=== PATIENT | female | born 2000 | race Caucasian/White ===

== ENCOUNTER 2020-04-20 15:13 | Emergency (ER) | payer OTHER, SELFPAY ==
[2020-04-20 15:26] VITALS: BP 126/72; PULSE 119; RESP 24; TEMP 37.2; O2SAT 99
--- NOTE | 2020-04-20 15:49 | ED.FEMALEGU ---
HPI - Female Genitourinary General Chief complaint: Urogenital-Female Stated complaint: fever/chills/vomitting/blood in urine/back pain Time Seen by Provider: 04/20/20 15:49 Source: patient Mode of arrival: ambulatory Limitations: no limitations History of Present Illness HPI Narrative: Nannette Verduzco is a 19 yo female with PMH if UTI here again with recurrent uti. Dysuria, urgency, burning, hematuria, x 1 week- blood started 2 days ago Related Data Home Medications Medication Instructions Recorded Confirmed No Home Medications 04/20/20 04/20/20 Allergies Allergy/AdvReac Type Severity Reaction Status Date / Time No Known Allergies Allergy Verified 04/20/20 15:36 Review of Systems Review of Systems: Narrative: CONSTITUTIONAL: Denies fever, chills, sweats. EYES: Denies visual changes, redness, discharge. ENT: Denies rhinorrhea, congestion, sore throat, otalgia. CARDIOVASCULAR: Denies chest pain, palpitations, edema. RESPIRATORY: Denies dyspnea, wheezing, cough GASTROINTESTINAL: Denies abdominal pain, nausea, vomiting, diarrhea. GENITOURINARYhas dysuria, has hematuria,no abnormal discharge SKIN: Denies rash or itching. NEUROLOGIC: Denies numbness, or focal weakness. PSYCHIATRIC: Denies anxiety or depression. [facility] Past Medical History Medical History (Updated 04/20/20 @ 16:02 by Laura Murray CNP) Anxiety Bacterial UTI Family History Family History Other No acute medical problems Social History Social History (Updated 04/20/20 @ 15:56 by Laura Murray CNP) Smoking packs per day: 0.5 Smoking cigarettes per day: 10.0 Smoking status: Current every day smoker Alcohol intake: current Comments At time of signature, I agree with nursing past medical, surgical, social and family history. There is no relevant family history pertinent to the presenting complaint. Exam Narrative: Exam Narrative: GENERAL: This is a well-nourished, well-developed patient, in moderate distress. HEAD: normocephalic, atraumatic. EYES: Sclera clear/white. Vision is grossly intact. EARS: External ears normal. Hearing grossly intact. NOSE: External nose normal without nasal discharge, nares without redness, no rhinorrhea. THROAT: Mucous membranes moist, posterior pharynx CARDIOVASCULAR: Regular rate and rhythm without murmurs, gallops, or rubs. RESPIRATORY: Clear to auscultation. Breath sounds equal bilaterally. No wheezes, rales, or rhonchi. GASTROINTESTINAL: Abdomen soft, mild tender, SKIN: warm, intact with no suspicious lesions or rash, good texture and turgor. NEURO: awake, alert, and oriented to person, place and time. There were no obvious focal neurologic abnormalities. Steady gait EXTREMITIES: Normal range of motion. BACK: Nontender without deformity Course Course Emergency Course: Patient came to express care for dysuria and hematuria UA result shows positive for nitrite 1+ leukocytes 2+ blood 1+ protein Cephalexin 500 mg every 12 hours x7 days, Pyridium, use Tylenol and ibuprofen Vital Signs Vital signs: Vital Signs Temperature 98.9 F 04/20/20 15:26 Pulse Rate 119 H 04/20/20 15:26 Respiratory Rate 24 H 04/20/20 15:26 Blood Pressure 126/72 04/20/20 15:26 Pulse Oximetry 99 04/20/20 15:26 Temperature 98.9 F 04/20/20 15:26 Pulse Rate 119 H 04/20/20 15:26 Respiratory Rate 24 H 04/20/20 15:26 Blood Pressure 126/72 04/20/20 15:26 Pulse Oximetry 99 04/20/20 15:26 MDM - Female Genitourinary Differential Diagnosis Differential diagnosis: Likely urinary tract infection, cystitis and other Lab Data Labs: UCG Bedside Result Negative Reference Range: Negative Urine Glucose Negative Reference Range: Negative Urine Bilirubin Negative
== END 2020-04-20 16:12 | disposition home or self-care (01) ==
PROVIDERS: Emergency Provider Nurse Practitioner
DX: N30.01 Acute cystitis with hematuria (principal); F17.210 Nicotine dependence, cigarettes, uncomplicated
CPT/HCPCS: 81003; 81025; 87077; 87086; 87088; 87186; 99203; G0463

== ENCOUNTER 2021-01-23 12:23 | Emergency (ER) | payer OTHER, SELFPAY ==
[2021-01-23 12:35] VITALS: BP 122/65; PULSE 98; RESP 18; TEMP 37.2; O2SAT 100
--- NOTE | 2021-01-23 13:30 | ED.GENADULT ---
HPI - General Adult General Chief complaint: Nausea/Vomiting/Diarrhea Stated complaint: Vomitting and Diarrhea Time Seen by Provider: 01/23/21 13:20 Source: patient and RN notes reviewed Mode of arrival: ambulatory Limitations: no limitations History of Present Illness HPI narrative: 20-year-old female presents with complaints of body aches, diarrhea, decreased appetite, nausea, and vomiting for the past 3 days. Nannette reports she started vomiting 4 hours prior to work and has been vomiting daily. No treatment. Nausea, vomiting, and diarrhea without abdominal pain. Exacerbating factors consist of eating and drinking. LBM prior to arrival soft stool without blood. Nannette reports 1 stool on Thursday01/22/21 and 3 on Thursday01/21/21. Vomit once today, 7 episodes on Thursday01/22/21 and 2 on Thursday01/21/21 without blood. Denies fever or chills. Denies headache, dizziness, back pain, and dysuria. Tolerating po intake well. LMP 01/18/21. Remains active. The patient reports she has not been diagnosed with COVID-19. The patient reports she is not waiting for the results of a COVID-19 lab test. The patient reports she does not have weakness, fatigue, or myalgia. The patient reports he does not have a new or worsening cough or shortness of breath. The patient reports he does not have any rhinorrhea, congestion, loss of taste or smell, and sore throat. Denies recent traveling. Denies concerns for COVID-19 or exposures. At this time, the patient is not suspected of having COVID-19. Some parts of this dictation were generated by voice recognition software and may contain typographical and/or grammatical inaccuracies. Related Data Allergies Allergy/AdvReac Type Severity Reaction Status Date / Time No Known Allergies Allergy Verified 01/23/21 12:52 Review of Systems Review of Systems: Narrative: CONSTITUTIONAL: Denies fever, chills, sweats. EYES: Denies visual changes, redness, discharge. ENT: Denies rhinorrhea, congestion, sore throat, otalgia. CARDIOVASCULAR: Denies chest pain, palpitations, edema. RESPIRATORY: Denies dyspnea, wheezing, cough. GASTROINTESTINAL: Denies abdominal pain. Complaints of diarrhea, nausea, vomiting, and decreased appetite. GENITOURINARY: Denies dysuria, hematuria, abnormal discharge. SKIN: Denies rash or itching. MUSCULOSKELETAL: Denies acute back pain, joint pain, or myalgia. NEUROLOGIC: Denies numbness or focal weakness. PSYCHIATRIC: Denies anxiety or depression. All systems reviewed & are unremarkable except as noted in HPI and below. [facility] Past Medical History Medical History Anxiety Bacterial UTI Smoker Surgical History Surgical History (Updated 01/30/21 @ 00:18 by ADITHYA Markham) No significant past surgical history Family History Family History (Updated 01/30/21 @ 00:19 by ADITHYA Markham) Father Asthma Hypertension Mother Alive and well Other No acute medical problems Social History Social History (Updated 01/30/21 @ 00:20 by ADITHYA Markham) Smoking packs per day: 0.5 Smoking cigarettes per day: 10.0 Smoking status: Current every day smoker Tobacco type: cigarettes Second hand tobacco smoke exposure: Yes (significant other) Alcohol intake: current Substance use: never Substance use type: does not use Living arrangements: with family Occupation/Education: occupation Gender identity (if verbalized by the patient): Female Sexual Orientation (if Verbalized by the Patient): Straight or Heterosexual Comments At time of signature, I have reviewed and agree with the nursing past medical, surgical, social, and family history. Please see the nursing chart for further information. There is no relevant family history pertinent to the presenting complaint. Exam Narrative: Exam Narrative: GENERAL: This is a well-nourished, well-developed patient, in no apparent distress. Talks in full sentences without deficits and ambulate
[2021-01-23] MEDS: ONDANSETRON HCL ODT 4 MG TABLET 8 MG PO (13:44)
[2021-01-24 16:56] LABS: SARS-CoV-2 RNA PCR Negative
== END 2021-01-23 14:20 | disposition home or self-care (01) ==
PROVIDERS: Emergency Provider Nurse Practitioner Family
DX: K52.9 Noninfective gastroenteritis and colitis, unspecified (principal); Z20.822 Contact with and (suspected) exposure to COVID-19; F17.210 Nicotine dependence, cigarettes, uncomplicated
CPT/HCPCS: 81003; 99213; A9270; C9803; G0463; U0003; U0005

== ENCOUNTER 2022-11-24 17:41 | Emergency (ER) | payer BC, OTHER, SELFPAY ==
--- NOTE | 2022-11-24 17:45 | ED.URI ---
HPI - URI/Sore Throat General Chief Complaint: Upper Respiratory Infection Stated Complaint: nose and throat Time Seen by Provider: 11/24/22 17:54 Source: patient and RN notes reviewed Mode of arrival: ambulatory Limitations: no limitations History of Present Illness HPI Narrative: 22-year-old female presents with for sore throat, nasal congestion and rhinorrhea that started on Thursday. She reports she has tried Benadryl, DayQuil and NyQuil without relief. She denies fever, aches, chills, sweats, cough MD elicited complaint: sore throat and nasal congestion Related Data Allergies Allergy/AdvReac Type Severity Reaction Status Date / Time No Known Allergies Allergy Verified 01/23/21 12:52 Review of Systems Review of Systems: CONSTITUTIONAL: Denies malaise, chills, sweats, or fever. EYES: Denies visual changes, redness, or discharge. ENT: Reports rhinorrhea, congestion, sore throat. Denies sinus pain, otalgia CARDIOVASCULAR: Denies chest pain, palpitations, or edema. RESPIRATORY: Denies cough. Denies dyspnea. GASTROINTESTINAL: Denies abdominal pain, nausea, vomiting, diarrhea SKIN: Denies rash or itching. MUSCULOSKELETAL: Denies myalgia. NEUROLOGIC: Denies headache. All systems reviewed & are unremarkable except as noted in HPI and below [facility] Past Medical History Medical History Anxiety Bacterial UTI Smoker Surgical History Surgical History (Updated 01/30/21 @ 00:18 by ADITHYA Markham) No significant past surgical history Family History Family History (Updated 01/30/21 @ 00:19 by ADITHYA Markham) Father Asthma Hypertension Mother Alive and well Other No acute medical problems Social History Social History (Updated 01/30/21 @ 00:20 by ADITHYA Markham) Smoking packs per day: 0.5 Smoking cigarettes per day: 10.0 Smoking status: Current every day smoker Tobacco type: cigarettes Second hand tobacco smoke exposure: Yes (significant other) Alcohol intake: current Substance use: never Substance use type: does not use Living arrangements: with family Occupation/Education: occupation Gender identity (if verbalized by the patient): Female Sexual Orientation (if Verbalized by the Patient): Straight or Heterosexual Comments At time of signature, agree with nursing past medical, surgical, social and family history. There is no relevant family history pertinent to the presenting complaint Exam Narrative: GENERAL: Well-appearing, well-nourished, and in no acute distress. HEAD: Normocephalic EYES: PERRLA, conjunctivae clear ENT: Nares clear, turbinates edematous and erythematous, clear discharge. Mucous membranes moist. TM pearly veloz with dull light reflex bilaterally; no tragal tenderness. Oropharynx not erythematous without lesions. Tonsils not enlarged and without exudate, no drooling, no hoarseness, no trismus, uvula midline. NECK: Supple. No lymphadenopathy CHEST: Clear to auscultation, breath sounds equal. No wheezing, rhonchi, rales, or stridor. No respiratory distress, speaks in full sentences. HEART: Regular rate and rhythm. No murmur heard. SKIN: Warm, dry, no rash. NEURO: Alert and oriented x3. PSYCH: Normal mood and affect Course Course Emergency Course: Patient is aware of diagnosis, understands and agrees to treatment plan. Anticipatory guidance given. Patient agrees to follow-up as directed and is aware of reasons to seek care at the emergency department. Portions of this record may have been created with voice recognition software Level of Care: Express Care Visit Vital Signs Vital signs: Reviewed. MDM - URI/Sore Throat MDM Narrative Medical decision making narrative: Differential diagnosis considered: Izaguirre virus, strep pharyngitis, allergic rhinitis, upper respiratory tract infection, sinusitis, rhinosinusitis, nasopharyngitis. viral pharyngitis, otitis media, otitis externa, pneumonia, bronchitis, viral cough syndro
[2022-11-24 17:46] VITALS: BP 146/87; PULSE 96; RESP 20; TEMP 37.1; O2SAT 100
== END 2022-11-24 18:13 | disposition home or self-care (01) ==
PROVIDERS: Emergency Provider Nurse Practitioner
DX: J06.9 Acute upper respiratory infection, unspecified (principal); F17.210 Nicotine dependence, cigarettes, uncomplicated
CPT/HCPCS: 87081; 87880; 99213; G0463

== ENCOUNTER 2024-07-26 18:15 | Emergency (ER) | payer OTHER, SELFPAY ==
[2024-07-26 18:20] VITALS: BP 135/71; PULSE 118; RESP 20; TEMP 36.7; O2SAT 98
--- NOTE | 2024-07-26 18:33 | ED.URI ---
HPI - URI/Sore Throat General Chief Complaint: Upper Respiratory Infection Stated Complaint: throat/stuff nose/aches Time Seen by Provider: 07/26/24 18:33 Source: patient, RN notes reviewed and old records reviewed Mode of arrival: ambulatory Limitations: no limitations History of Present Illness HPI Narrative: 23 YEAR OLD FEMALE WHO PRESENTS to doctors hospital care with complaints of 3 day history of sore throat, nasal congestion, cough, nausea, body aches and chills with no known fevers since she doesn't have a thermometer. Patient reports that she is 15 weeks and is suppose to see her TURN OPERATOR for her routine check up tomorrow. Patient reports that her boyfriend had hernia surgery this morning at [facility] and she went to the hospital with him. Patient reports her daughter is staying with her grandparents at this time. Patient has not taken any OTC medications for her symptoms because she was unsure what was safe to take. MD elicited complaint: sore throat, rhinorrhea, nasal congestion and other (body aches) Pertinent past history: other (Patient is 15 week ) Onset (ago): day(s) (3) Consistency: constant Severity: moderate Description of mucous: clear Able to tolerate fluids by mouth: Yes Treatments prior to arrival: none Related Data Home Medications ?Medication ?Instructions ?Recorded ?Confirmed ?Last Taken ?Type vits no.130-ferrous fum 1 tablet PO DAILY 07/26/24 Unknown History 27 mg iron-folic acid 800 mcg tablet ( Vitamin) Allergies Allergy/AdvReac Type Severity Reaction Status Date / Time No Known Allergies Allergy Verified 07/26/24 18:37 Review of Systems Review of Systems: CONSTITUTIONAL: Reports malaise, chills, sweats, unknown if fever. EYES: Denies visual changes, redness, or discharge. ENT: Reports rhinorrhea, congestion, sinus pain,no otalgia and positive for sore throat. CARDIOVASCULAR: Denies chest pain, palpitations, or edema. RESPIRATORY: Reports cough.? Denies dyspnea. GASTROINTESTINAL: Denies abdominal pain,states nausea,no vomiting, diarrhea SKIN: Denies rash or itching. MUSCULOSKELETAL: Reports myalgia. NEUROLOGIC: Denies headache. All systems reviewed & are unremarkable except as noted in HPI and below PMFSH Past Medical History Medical History Smoker Anxiety Bacterial UTI Surgical History Surgical History No significant past surgical history Family History Family History Father Asthma Hypertension Mother Alive and well Other No acute medical problems Social History Social History Smoking packs per day: 0.5 Smoking cigarettes per day: 10.0 Smoking status: Current every day smoker Tobacco type: cigarettes Second hand tobacco smoke exposure: Yes (significant other) Additional smoking assessment comments: quit 2 months ago in May of 2024 Alcohol intake: current Substance use: never Substance use type: does not use Living arrangements: with family Occupation/Education: occupation Gender identity (if verbalized by the patient): Female Sexual Orientation (if Verbalized by the Patient): Straight or Heterosexual Comments At time of signature, agree with nursing past medical, surgical, social and family history. There is no relevant family history pertinent to the presenting complaint Exam Narrative: GENERAL: Well-appearing, well-nourished, and in no acute distress. HEAD: Normocephalic EYES: PERRLA, conjunctivae clear ENT: Nares clear, turbinates edematous and erythematous, clear discharge, some sinus pressure. Mucous membranes moist. TM pearly veloz with dull light reflex bilaterally; no tragal tenderness. Oropharynx erythematous without lesions. Tonsils not enlarged and without exudate, no drooling, no hoarseness, no trismus, uvula midline. post nasal drainage NECK: Supple. No lymphadenopathy CHEST: Clear to auscultation, breath sounds equal. No wheezing, rhonchi, rales, or stridor. No respiratory distress, speaks in full sentences.cough noted SAO2 98% on room air HEART: Regular rate and rhythm. No murmur heard. SKIN: Warm, dry, no rash. NEURO: Alert and oriented x3. PSYCH: Normal mood and affect Course Course Emergency Course: Patient is aware of diagnosis, understands and agrees to treatment plan.? Anticipatory guidance given.? Patient agrees to follow-up as directed and is aware of reasons to seek care at the emergency department. Portions of this record may have been created with voice recognition software Level of Care: Express Care Visit Vital Signs Vital signs: Vital Signs Temperature 36.7 C 07/26/24 18:20 Pulse Rate 118 H 07/26/24 18:20 Respiratory Rate 20 07/26/24 18:20 Blood Pressure 135/71 07/26/24 18:20 Pulse Oximetry 98 07/26/24 18:20 Oxygen Delivery Room Air 07/26/24 18:20 Temperature 36.7 C 07/26/24 18:20 Pulse Rate 118 H 07/26/24 18:20 Respiratory Rate 20 07/26/24 18:20 Blood Pressure 135/71 07/26/24 18:20 Pulse Oximetry 98 07/26/24 18:20 Oxygen Delivery Room Air 07/26/24 18:20 Reviewed MDM - URI/Sore Throat MDM Narrative Medical decision making narrative: Differential diagnosis considered: Izaguirre virus, strep pharyngitis, allergic rhinitis, upper respiratory tract infection, sinusitis, rhinosinusitis, nasopharyngitis. viral pharyngitis, otitis media, otitis externa, pneumonia, bronchitis, viral cough syndrome, viral syndrome, and influenza.? Exam findings show no acute concerns or changes; patient is non-toxic appearing and is in no distress.? Patient is appropriate for outpatient treatment and follow-up. Differential Diagnosis Differential diagnosis: Likely upper respiratory infection, sinusitis, viral infection, influenza, pharyngitis and other (strep pharyngitis, COVID, cough, nausea) Medical Records Attestation: I reviewed the patient's medical records. Lab Data Attestation: I reviewed the patient's lab results. Lab results narrative: covid antigen negative, Influenza A negative, Influenza B negative, Strep screen negative, strep culture sent Critical Care Time Critical Care Time Critical Care Time: No Discharge Plan Discharge Clinical Impression: Nausea URI (upper respiratory infection) Qualifiers: URI type: unspecified URI Qualified Code(s): J06.9 - Acute upper respiratory infection, unspecified Patient Disposition: Home, Self-Care Condition: Stable Instructions: Upper Respiratory Infection (ED), Nausea and Vomiting in (ED) Additional Instructions: Increase fluids especially juices and water [id number] cough and cold medicine of your choice for your symptoms Tylenol only for pain heat to the face 20-30 minutes 4-6 times a day for pain Salt water gargles, throat lozenges or throat sprays as desired Zyrtec or Claritin daily for sinus congestion Robitussin for cough Zofran for nausea as prescribed List of medications that are safe with given to patient and instructed patient to review with her TURN OPERATOR Buy a thermometer Blood pressure elevated above 120/80 which may indicate pre hypertension discuss with PCP soon in regards to your blood pressure 135/71 Patient Language: Macedonian Prescriptions: New ondansetron 4 mg tablet,disintegrating 4 mg PO Q6H PRN (Reason: nausea and vomiting) Qty: 14 0RF acetaminophen [Tylenol Extra Strength] 500 mg tablet 500 mg PO Q6H PRN (Reason: fever or pain) Qty: 30 0RF No Action Vitamin 27 mg iron- 800 mcg tablet 1 tablet PO DAILY Follow-up/Referrals: PHYSICIAN,RESIDENTIAL LIFE DIRECTOR [Primary Care Provider] - Time of Disposition: 18:58 Quality Elizabeth Coma Scale Eyes: Open Verbal: Oriented and Alert Motor: Follows Commands Hawley Coma Total Score: 15
[2024-07-26 18:47] LABS: EDCOVIDSCREEN Negative (Negative); EDINFLUASCREEN Negative (Negative); EDINFLUBSCREEN Negative (Negative); EDSTREPNEGPOS1 Negative (Negative)
== END 2024-07-26 19:00 | disposition home or self-care (01) ==
PROVIDERS: Emergency Provider Registered Nurse
DX: O99.891 Other specified diseases and conditions complicating pregnancy (principal); R11.0 Nausea; Z3A.15 15 weeks gestation of pregnancy; O99.512 Diseases of the respiratory system complicating pregnancy, second trimester; J06.9 Acute upper respiratory infection, unspecified; Z20.822 Contact with and (suspected) exposure to COVID-19
CPT/HCPCS: 87081; 87426; 87804; 87880; 99213; G0463

== ENCOUNTER 2025-03-23 08:25 | Emergency (ER) | payer BC, OTHER, SELFPAY ==
--- NOTE | 2025-03-23 08:27 | ED.URI ---
HPI - URI/Sore Throat General Chief Complaint: Upper Respiratory Infection Stated Complaint: sore throat, conjestion Time Seen by Provider: 03/23/25 08:26 Source: patient Mode of arrival: ambulatory Limitations: no limitations History of Present Illness HPI Narrative: Jessie is a 24-year-old female patient presenting to the clinic today with complaints sore throat and nasal congestion x2 days. She reports no fevers but did feel clammy and had some chills. Denies any shortness of breath or chest pain. Has tried taking cough drops with very little relief. No known sick contacts. She is a smoker. MD elicited complaint: sore throat and nasal congestion Related Data Allergies Allergy/AdvReac Type Severity Reaction Status Date / Time No Known Allergies Allergy Verified 03/23/25 08:48 Review of Systems Review of Systems: Pertinent positives per HPI. Patient denies any fever, chills, rash, headache, visual changes, dizziness, shortness of breath, chest pain, palpitations, nausea, vomiting, diarrhea, constipation, abdominal pain, or any urinary issues. [facility] Past Medical History Medical History Smoker Anxiety Bacterial UTI Surgical History Surgical History No significant past surgical history Family History Family History Father Asthma Hypertension Mother Alive and well Other No acute medical problems Social History Social History Smoking packs per day: 0.5 Smoking cigarettes per day: 10.0 Smoking status: Current every day smoker Tobacco type: cigarettes Second hand tobacco smoke exposure: Yes (significant other) Additional smoking assessment comments: quit 2 months ago in May of 2024 Alcohol intake: current Substance use: never Substance use type: does not use Living arrangements: with family Occupation/Education: occupation Gender identity (if verbalized by the patient): Female Sexual Orientation (if Verbalized by the Patient): Straight or Heterosexual Comments At the time of my signature, I reviewed and agree with the nursing past medical, surgical, social, and family history. There is no relevant family history pertinent to the patient complaint. Exam Narrative: General: Well-developed, well nourished, in no apparent distress Head: Normocephalic, atraumatic Eyes: Pupils equally round and reactive to light bilaterally, EOM intact, sclera and conjunctive clear, no discharge, lids normal Ears: TMs intact and clear, ear canals clear, no drainage, grossly hearing normal. Nose: Nares patent, clear nasal discharge, mild inflammation, no sinus tenderness. Mouth: Oral pharynx without lesions or masses, good dentition, MMM. Postnasal drip Neck: Supple, trachea midline, no enlargement of anterior or posterior cervical nodes, no thyroid masses or goiter palpable. Cardio: Regular rate and rhythm, s1 and s2 normal, no murmur appreciated. Resp: Clear to auscultation bilaterally, no rhonchi, rales, wheezing or rubs Course Course Emergency Course: Portions of this record may have been created with voice recognition software. Level of Care: Express Care Visit Vital Signs Vital signs: Vital Signs Temperature 37.1 C 03/23/25 08:49 Pulse Rate 95 03/23/25 08:49 Respiratory Rate 18 03/23/25 08:49 Blood Pressure 142/63 H 03/23/25 08:49 Pulse Oximetry 97 03/23/25 08:49 Oxygen Delivery Room Air 03/23/25 08:49 Temperature 37.1 C 03/23/25 08:49 Pulse Rate 95 03/23/25 08:49 Respiratory Rate 18 03/23/25 08:49 Blood Pressure 142/63 H 03/23/25 08:49 Pulse Oximetry 97 03/23/25 08:49 Oxygen Delivery Room Air 03/23/25 08:49 Vital signs reviewed MDM - URI/Sore Throat MDM Narrative Medical decision making narrative: At the time of visit patient is resting comfortably on the exam table. Patient appears to be nontoxic. Complaints sore throat and nasal congestion x2 days. She reports no fevers but did feel clammy and had some chills. Denies any shortness of breath or chest pain. Has tried taking cough drops with very little relief. No known sick contacts. On exam patient has clear nasal drainage, bilateral TMs intact and congested, heart rates regular rate and rhythm, lung sounds are clear, oral pharynx-postnasal drip. COVID, flu, and strep test were ordered. Labs: COVID, flu, and strep test were performed and negative in the clinic today. We will send strep for culture. Plan: I suspect patient has URI/postnasal drip. Work note was given. Supportive measures were discussed with the patient and they voiced understanding discharge instructions and agrees to treatment plan. Return precautions reviewed Differential Diagnosis Differential diagnosis: Likely upper respiratory infection, otitis media, sinusitis, viral infection, bronchitis, influenza, pharyngitis and other Lab Data Labs: Lab Results 03/23/25 Range/Units 09:02 POC Influenza A Ag Negative (Negative) POC Influenza B Ag Negative (Negative) POC SARS CoV-2 Ag Negative (Negative) POC Grp A Strep Screen Negative (Negative) Discharge Plan Discharge Clinical Impression: Post-nasal drip Upper respiratory infection Qualifiers: URI type: unspecified URI Qualified Code(s): J06.9 - Acute upper respiratory infection, unspecified Patient Disposition: Home Condition: Stable Instructions: Antibiotic Form, Cold Symptoms (ED), Postnasal Drip (DC) Additional Instructions: Strep, COVID, and influenza testing were all negative in the clinic today. We will send strep for culture if this comes back positive we will contact you in place you on antibiotics at that time. May take DayQuil/NyQuil for cold/flu symptoms Increase fluids and stay well hydrated May take Tylenol or motrin as directed on bottle for pain/fever May use Flonase 1 spray in each nare daily May take OTC antihistamines such as Zyrtec or Claritin daily as directed on bottle May apply Vicks vapor rub to chest to open sinuses Sinus rinses for congestion Cepacol spray, cough drops, throat lozenges, warm tea with honey/lemon, gargle salt water to soothe throat BRAT diet for diarrhea Clear liquids x 24 hours then advance as tolerated for nausea/vomiting Go to the ED if you develop a worsening in your condition- high fever not controlled by Tylenol or Motrin, dehydration, weakness, lethargy, shortness of breath, or chest pain. Follow up with your PCP in 3-5 days if symptoms persist. Patient Language: Grenadian Follow-up/Referrals: UNKNOWN,DOCTOR [Primary Care Provider] Stand Alone Forms: Work/School Release IP Time of Disposition: 09:02 Quality NIH Nursing Documentation ED NIHSS nursing documentation: reviewed/agree
[2025-03-23 08:49] VITALS: BP 142/63; PULSE 95; RESP 18; TEMP 37.1; O2SAT 97
[2025-03-23 09:04] LABS: EDCOVIDSCREEN Negative (Negative); EDINFLUASCREEN Negative (Negative); EDINFLUBSCREEN Negative (Negative); EDSTREPNEGPOS1 Negative (Negative)
== END 2025-03-23 09:04 | disposition home or self-care (01) ==
PROVIDERS: Emergency Provider Nurse Practitioner Family
DX: R09.82 Postnasal drip (principal); J06.9 Acute upper respiratory infection, unspecified; Z20.822 Contact with and (suspected) exposure to COVID-19; F17.200 Nicotine dependence, unspecified, uncomplicated
CPT/HCPCS: 87081; 87426; 87804; 87880; 99213; G0463